=== PATIENT | male | born 2000 | race Caucasian/White ===

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

== ENCOUNTER 2022-11-06 08:39 | Emergency (ER) | payer OTHER ==
[~2022-11-06] VITALS: Ht 180.3 cm; Wt 86.2 kg
[2022-11-06 08:48] VITALS: BP 129/77
[2022-11-06] MEDS ORDERED: TRUVADA1 TA1 PO (11:01)
[2022-11-06] MEDS ORDERED: ISENTRESS400 MG PO (11:01)
== END 2022-11-06 11:20 | disposition home or self-care (01) | DRG 605 ==
LOC: ED 08:39
DX: S51.851A Open bite of right forearm, initial encounter (principal); Y04.1XXA Assault by human bite, initial encounter